=== PATIENT | male | born 1955 | race Caucasian/White ===

== ENCOUNTER 2021-06-27 15:49 | Emergency (ER) | payer MEDICARE, OTHER ==
[~2021-06-27] VITALS: Ht 167.6 cm; Wt 97.2 kg
[2021-06-27 16:00] VITALS: BP 188/110
== END 2021-06-27 17:06 | disposition home or self-care (01) ==
LOC: ER 15:50
DX: R25.2 Cramp and spasm (principal); M79.651 Pain in right thigh; R22.41 Localized swelling, mass and lump, right lower limb; R20.2 Paresthesia of skin; G62.9 Polyneuropathy, unspecified; Z88.6 Allergy status to analgesic agent; Z87.891 Personal history of nicotine dependence
CPT/HCPCS: 99281

== ENCOUNTER 2021-06-28 15:28 | Outpatient (CLI) | payer OTHER, MEDICARE | END 2021-06-28 23:59 | disposition home or self-care (01) | LOC: VAS 15:28 | PROVIDERS: ATTEND Physician Assistant | DX: M79.604 Pain in right leg (principal); R60.9 Edema, unspecified; I10 Essential (primary) hypertension | CPT/HCPCS: 93970 ==